=== PATIENT | male | born 1985 | race African-American/Black ===

== ENCOUNTER 2018-12-19 18:30 | Emergency (ER) | payer OTHER ==
[2018-12-19 18:55] VITALS: BP 131/78
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
== END 2018-12-19 20:48 | disposition home or self-care (01) ==
LOC: ER 18:30
DX: M79.642 Pain in left hand (principal); M79.641 Pain in right hand; V49.9XXA Car occupant (driver) (passenger) injured in unspecified traffic accident, initial encounter

== ENCOUNTER 2019-02-24 16:25 | Emergency (ER) | payer OTHER ==
[2019-02-24] MEDS ORDERED: ACETAMINOPHEN 325 MG TABLET PO ONE (17:14)
--- NOTE | 2019-02-24 17:16 | ER Document Report ---
ED Medical Screen (RME) - General Chief Complaint: Fever Stated Complaint: FEVER Time Seen by Provider: 02/24/19 17:13 Notes: Patient presents with multiple chief complaints. Patient states that he has had a fever for the last couple of days and a nonproductive cough. Also, patient noticed 2 small sores on the shaft of his penis. He is in a monogamous relationship. 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 He denies any chills, denies sore throat, denies earache, denies any weakness, denies chest pain. Patient does state that he noticed the sores on Wednesday and he is tried Neosporin and they have not healed at all. He says that they are painful and burning. Exam: Well-appearing in no acute distress, lungs are clear to auscultation in all dean, rate cardiac rate and rhythm, there are 2 small sores on the shaft of his penis with no surrounding erythema TRAVEL OUTSIDE OF THE [place] IN LAST 30 DAYS: No - Related Data Allergies/Adverse Reactions: No Known Allergies Allergy (Verified 12/19/18 18:46) Past Medical History - Social History Chew tobacco use (# tins/day): No Frequency of alcohol use: None Drug Abuse: None Renal/ Medical History: Denies: Hx Peritoneal Dialysis Physical Exam - Vital signs Vitals: Temp Pulse Resp BP Pulse Ox 98.8 F 69 20 140/87 H 96 02/24/19 16:35 02/24/19 16:35 02/24/19 16:35 02/24/19 16:35 02/24/19 16:35 Course - Vital Signs Vital signs: Temp Pulse Resp BP Pulse Ox 98.8 F 69 20 140/87 H 96 02/24/19 16:35 02/24/19 16:35 02/24/19 16:35 02/24/19 16:35 02/24/19 16:35
--- NOTE | 2019-02-24 18:04 | RADIOLOGY REPORT (SQ) ---
EXAM DESCRIPTION: CHEST 2 VIEWS COMPLETED DATE/TIME: 02/24/2019 5:33 pm REASON FOR STUDY: cough, fever, sob COMPARISON: None. EXAM PARAMETERS: NUMBER OF VIEWS: two views TECHNIQUE: Digital Frontal and Lateral radiographic views of the chest acquired. RADIATION DOSE: NA LIMITATIONS: none FINDINGS: LUNGS AND PLEURA: There is heterogeneous opacity of the left lung base, best appreciated o n lateral view. MEDIASTINUM AND HILAR STRUCTURES: No masses or contour abnormalities. HEART AND VASCULAR STRUCTURES: Heart normal size. No evidence for failure. BONES: No acute findings. HARDWARE: None in the chest. OTHER: No other significant finding. IMPRESSION: Heterogeneous opacity of the left lung base, concerning for infection or aspiration. Re commend follow-up radiographs in 6 to 8 weeks to ensure complete resolution. TECHNICAL DOCUMENTATION: JOB ID: [id number] [employer]- All Rights Reserved Reading location - IP/workstation name: [email or web address]
[2019-02-24 19:32] LABS: APPEARANCE,URINE CLEAR; BILIRUBIN,URINE NEGATIVE (NEGATIVE); COLOR,URINE YELLOW; GLUCOSE, URINE NEGATIVE (NEGATIVE); KETONES,URINE NEGATIVE (NEGATIVE); LEUKOCYTE ESTERASE,URINE NEGATIVE (NEGATIVE); NITRITE,URINE NEGATIVE (NEGATIVE); PROTEIN,URINE NEGATIVE (NEGATIVE); UROBILINOGEN,URINE NEGATIVE mg/dL (<2.0)
[2019-02-24] MEDS ORDERED: DOXYCYCLINE HYCLATE 100 MG TABLET PO ONE (20:54)
[2019-02-24] MEDS ORDERED: ACYCLOVIR 200 MG CAPSULE PO ONE (21:53)
--- NOTE | 2019-02-24 21:55 | ER Document Report ---
ED General - General Chief Complaint: Fever Stated Complaint: FEVER Time Seen by Provider: 02/24/19 17:13 Notes: RME NOTE: Patient presents with multiple chief complaints. Patient states that he has had a fever for the last couple of days and a nonproductive cough. Also, patient noticed 2 small sores on the shaft of his penis. He is in a monogamous relationship. 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 He denies any chills, denies sore throat, denies earache, denies any weakness, denies chest pain. Patient does state that he noticed the sores on Wednesday and he is tried Neosporin and they have not healed at all. He says that they are painful and burning. MY HPI: Patient is denying any chest pain or consistent cough. States his cough is intermittent and "annoying." Patient voices no penile discharge or history of herpetic lesions. Patient has no medical problems, takes no daily medications, has no allergies. TRAVEL OUTSIDE OF THE [place] IN LAST 30 DAYS: No - Related Data Allergies/Adverse Reactions: No Known Allergies Allergy (Verified 12/19/18 18:46) Past Medical History - General Information source: Patient - Social History Smoking Status: Former Smoker Chew tobacco use (# tins/day): No Frequency of alcohol use: None Drug Abuse: None Family History: Reviewed & Not Pertinent Patient has suicidal ideation: No Patient has homicidal ideation: No Renal/ Medical History: Denies: Hx Peritoneal Dialysis Review of Systems - Review of Systems Constitutional: denies: Fever EENT: See HPI Cardiovascular: See HPI Respiratory: See HPI Gastrointestinal: No symptoms reported Genitourinary: See HPI Male Genitourinary: See HPI Musculoskeletal: No symptoms reported Skin: See HPI Hematologic/Lymphatic: No symptoms reported Neurological/Psychological: No symptoms reported Physical Exam - Vital signs Vitals: Temp Pulse Resp BP Pulse Ox 98.8 F 69 20 140/87 H 96 02/24/19 16:35 02/24/19 16:35 02/24/19 16:35 02/24/19 16:35 02/24/19 16:35 - Notes Notes: GENERAL: Alert, interacts well. No acute distress. HEAD: Normocephalic, atraumatic. EYES: Pupils equal, round, and reactive to light. Extraocular movements intact. ENT: Oral mucosa moist, tongue midline. NECK: Full range of motion. Supple. Trachea midline. LUNGS: Clear to auscultation bilaterally, no wheezes, rales, or rhonchi. No respiratory distress. HEART: Regular rate and rhythm. No murmur ABDOMEN: Soft, non-tender. Non-distended. Bowel sounds present in all 4 quadrants. EXTREMITIES: Moves all 4 extremities spontaneously. No edema, normal radial and dorsalis pedis pulses bilaterally. No cyanosis. BACK: no cervical, thoracic, lumbar midline tenderness. No saddle anesthesia, normal distal neurovascular exam. NEUROLOGICAL: Alert and oriented x3. Normal speech. [cranial nerves II through XII grossly intact]. PSYCH: Normal affect, normal mood. SKIN: Warm, dry, normal turgor. 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 Multiple erythematous irregular small lesions noted to the distal aspect of the penis. Painful. Not specifically vesicular. Course - Re-evaluation Re-evalutation: 02/24/19 21:50 Chest X-Ray 02/24/19 17:13 IMPRESSION: Heterogeneous opacity of the left lung base, concerning for infection or aspiration. Recommend follow-up radiographs in 6 to 8 weeks to ensure complete resolution. Patient's chest x-ray does show signs of pneumonia. We will treat as such. Patient has no history or story of an aspirating event. I have asked Dr. Sepulveda to exam the pts penis at bedside he too agrees to test for HSV and treat appropriately. Discussed phone number for culture results with patient at bedside. Patient stable for discharge. Pt is not tachycardic, febrile, hypoxic. No respiratory distress noted on ambulation. Patient stable for discharge with oral antibiotics. - Vital Signs Vital signs: Temp Pulse Resp BP Pulse Ox 98.8 F 69 20 140/87 H 96 02/24/19 16:35 02/24/19 16:35 02/24/19 16:35 02/24/19 16:35 02/24/19 16:35 - Laboratory Laboratory results interpreted by me: 02/24/19 19:22 Urine Ascorbic Acid 40 H Discharge - Discharge Clinical Impression: Penile rash Pneumonia Qualifiers: Pneumonia type: due to unspecified organism Laterality: left Lung location: lower lobe of lung Qualified Code(s): J18.1 - Lobar pneumonia, unspecified organism Condition: Stable Disposition: HOME, SELF-CARE Instructions: Pneumonia ([facility]), Genital Herpes ([facility]) Additional Instructions: As we discussed you have been seen and treated in the emergency department for pneumonia. Please take your antibiotics as prescribed. You are also being treated for genital herpes. Your lesions are suspect for general herpes. I have taken a culture. Please call [phone] for culture results. Please return to the emergency department should you have any respiratory distress or any other concerns. Prescriptions: Acyclovir [Acyclovir 400 mg Tablet] 400 mg PO TID 5 Days tablet Doxycycline Hyclate 100 mg PO BID #14 capsule Forms: Return to Work
[2019-02-24 22:33] VITALS: BP 125/77
[2019-02-24 23:36] LABS: CHLAM PCR NOT DETECTED (NOT DETECT)
== END 2019-02-24 22:33 | disposition home or self-care (01) ==
LOC: ER 16:25
DX: J18.1 Lobar pneumonia, unspecified organism (principal); R21 Rash and other nonspecific skin eruption; R05 Cough; Z87.891 Personal history of nicotine dependence
CPT/HCPCS: 36415; 71046; 81001; 87250; 87491; 87529; 87591; 99283